=== PATIENT | male | born 2000 | race Caucasian/White ===

== ENCOUNTER 2023-07-26 16:40 | Emergency (ER) | payer SELFPAY ==
[~2023-07-26] VITALS: Ht 172.7 cm; Wt 60.0 kg
[2023-07-26 17:08] VITALS: BP 110/68; TEMP 98.5; O2SAT 100
[2023-07-26 17:18] VITALS: PULSE 72; RESP 16
[2023-07-26] MEDS: TETANUS, DIPHTHERIA, PERTUSSIS VAC/PF 0.5ML (>10YR OLD) IM ONE (18:00)
[2023-07-26] MEDS: BACITRACIN ZINC OINT UDPKT TOP ONE (18:00)
[2023-07-26] MEDS: LIDOCAINE HCL/PF 1% 10 MG/ML 5ML VIAL INFIL ONE (18:00)
[2023-07-26] MEDS ORDERED: TOPUD MT (18:46)
[2023-07-26] MEDS ORDERED: BO1 TP (18:46)
== END 2023-07-26 19:35 | disposition home or self-care (01) ==
LOC: ER 16:40
DX: S61.411A Laceration without foreign body of right hand, initial encounter (principal); X58.XXXA Exposure to other specified factors, initial encounter; Y93.89 Activity, other specified; Y92.89 Other specified places as the place of occurrence of the external cause; Y99.8 Other external cause status
CPT/HCPCS: 73130; 99283; 90715; 12002; 90471; J3490